=== PATIENT | male | born 1965 | race Caucasian/White ===

== ENCOUNTER 2016-11-22 21:42 | Emergency (ER) | payer SELFPAY ==
[2016-11-22 21:55] VITALS: TEMP 97.9
--- NOTE | 2016-11-22 22:09 | EDPHY ---
H & P Time Seen by Provider: 11/22/16 22:02 HPI/ROS: CHIEF COMPLAINT: Alcohol intoxication HISTORY OF PRESENT ILLNESS: The patient is a 51-year-old male presenting with alcohol intoxication. The patient has a history of alcohol abuse, his last drink was five hours ago. Patient states "I'm an alcoholic and I've been drinking a lot and smoking weed to the excess. I need help dealing with this please." The patient would like help with detox. He states he has been living on the streets for the last 16 weeks. He is ready to make a change. Patient additionally notes ongoing pain in his right groin. He had varicose vein removal years ago and has continued to have pain since surgery. REVIEW OF SYSTEMS: A comprehensive 10 point review of systems is otherwise negative aside from elements mentioned in the history of present illness. Past Medical/Surgical History: Alcohol abuse, Right lower extremity cellulitis, Right lower extremity varicose vein surgery Social History: Homeless. Alcohol abuse. Heavy marijuana use. Smoking Status: Current every day smoker Physical Exam: General Appearance: Alert, pleasant Eyes: Pupils equal and round, no conjunctival pallor or injection ENT, Mouth: Mucous membranes moist Neck: Normal inspection Respiratory: Lungs are clear to auscultation Cardiovascular: Regular rate and rhythm Gastrointestinal: Abdomen is soft and non-tender Neurological: A&O, nonfocal, normal gait Skin: Warm and dry, no rash Extremities: Nontender, no pedal edema Psychiatric: Mood and affect normal Constitutional: Initial Vital Signs Temperature (C) 36.6 C 11/22/16 21:51 Heart Rate 94 11/22/16 21:51 Respiratory Rate 18 11/22/16 21:51 Blood Pressure 115/74 11/22/16 21:51 O2 Sat (%) 94 11/22/16 21:51 O2 Delivery Mode Room Air Allergies/Adverse Reactions: No Known Allergies Allergy (Unverified 11/22/16 21:55) Home Medications: Medication Instructions Recorded NK [No Known Home Meds] 11/22/16 Departure - Departure Disposition: Home, Routine, Self-Care Clinical Impression: Alcohol intoxication Qualifiers: Complication of substance-induced condition: uncomplicated Qualified Code(s): F10.920 - Alcohol use, unspecified with intoxication, uncomplicated Condition: Good Instructions: Alcohol Intoxication (ED) Additional Instructions: [facility] to help detox from alcohol. Referrals: [facility] [Outside] - As per Instructions [facility] [Outside] - As per Instructions Report Scribed for: Jennifer Sage Report Scribed by: Marianne Ricks Date of Report: 11/22/16 Time of Report: 22:05 Physician Review and Approval Statement: 11/22/16 22:05 Portions of this note were transcribed by a medical review coordinator. I personally performed the history, physical exam, and medical decision-making; and confirmed the accuracy of the information in the transcribed note.
[2016-11-22] MEDS ORDERED: CHLORDIAZEPOXIDE 25MG PREPK#6 BTL TAKEHOME ONE (22:34)
[2016-11-22 23:00] VITALS: BP 129/74; PULSE 54; RESP 16; O2SAT 96
== END 2016-11-22 23:02 | disposition home or self-care (01) ==
DX: F10.920 Alcohol use, unspecified with intoxication, uncomplicated (principal); F17.200 Nicotine dependence, unspecified, uncomplicated

== ENCOUNTER 2017-07-05 02:22 | Emergency (ER) | payer MEDICAID ==
[2017-07-05 02:31] VITALS: RESP 18; O2SAT 92
[2017-07-05] MEDS ORDERED: CEPHALEXIN 500 MG CAP PO ONE (03:33)
--- NOTE | 2017-07-05 03:37 | EDPHY ---
H & P Stated Complaint: hand injury last week, juwan foot cellulitis Time Seen by Provider: 07/05/17 02:49 HPI/ROS: HPI The patient presents brought in by ambulance for foot pain of his right greater than left feet. This is been present for the last 2 days. He has been extensively walking and has not been changing his socks. He had slow onset of right foot pain which is achy, constant, worse with walking. It is not improved with elevation. This is associated with redness and weeping of the dorsum of his foot. He has not had any fevers or chills. He has not had any nausea or vomiting. He had a similar episode several years ago which improved with antibiotic pills. One week ago he was injured in [place] after a fall. He had an x-ray performed of his left hand which demonstrated a left thumb fracture. He lost his splint. He is also complaining of right hand pain and says no x-ray was performed and he is concerned that he may have broken something. REVIEW OF SYSTEMS Constitutional: No fever, no chills. Eyes: No discharge. ENT: No sore throat. Cardiovascular: No chest pain, no palpitations. Respiratory: No cough, no shortness of breath. Gastrointestinal: No abdominal pain, no vomiting. Genitourinary: No hematuria. Musculoskeletal: No back pain. Skin: See HPI Neurological: No headache. PMHx: No diabetes, no hypertension Soc Hx: Homeless PHYSICAL General Appearance: Alert, no distress Eyes: Pupils equal and round no pallor or injection ENT, Mouth: Mucous membranes moist Respiratory: There are no retractions, lungs are clear to auscultation Cardiovascular: Regular rate and rhythm Gastrointestinal: Abdomen is soft and non-tender, no masses, bowel sounds normal Neurological: A&O, moves all extremities Skin: Warm and dry, no rashes Musculoskeletal: Neck is supple non tender Extremities: Right foot is diffusely erythematous and warm, tender to palpation , there is denuded tissue on the dorsum of his foot which is weeping a clear fluid Psychiatric: Patient is oriented X 3, there is no agitation Source: Patient - Personal History Current Tetanus Diphtheria and Acellular Pertussis (TDAP): Yes - Medical/Surgical History Hx Asthma: No Hx Chronic Respiratory Disease: No Hx Diabetes: No Hx Cardiac Disease: No Hx Renal Disease: No Hx Cirrhosis: No Hx Alcoholism: Yes Hx HIV/AIDS: No Hx Splenectomy or Spleen Trauma: No Other PMH: appendectomy, vascular surgery for rt leg cellutits? - Social History Smoking Status: Current every day smoker Constitutional: Initial Vital Signs Temperature (C) 36.5 C 07/05/17 02:25 Heart Rate 116 H 07/05/17 02:25 Respiratory Rate 18 07/05/17 02:25 Blood Pressure 132/89 H 07/05/17 02:25 O2 Sat (%) 92 07/05/17 02:25 O2 Delivery Mode Room Air Allergies/Adverse Reactions: No Known Allergies Allergy (Unverified 11/22/16 21:55) Home Medications: Medication Instructions Recorded Cephalexin [Keflex (*)] 500 mg PO Q6H #28 cap 07/05/17 Medical Decision Making - Diagnostics Imaging Results: X-ray right hand three view shows no fracture, no dislocation, interpreted by me , radiology interpretation is pending. Differential Diagnosis: This is a 52-year-old male who is homeless with no significant past medical history who presents with pain of the right foot for the last 2 days associated with redness and drainage. He has poor hygiene and has been walking extensively. Differential diagnosis includes cellulitis, trench foot, less likely frostbite. In the emergency department, patient was given Keflex for likely cellulitis of his foot. X-ray of his right hand was performed per his request. His left thumb was splinted. Right hand x-ray was unremarkable. He was discharged with a prescription for Keflex and [facility]. - Data Points Medications Given: Discontinued Medications Cephalexin HCl (Keflex) 500 mg PO EDNOW ONE PRN Reason: Protocol Stop: 07/05/17 03:34 Last Admin: 07/05/17 03:56 Dose: 500 mg Departure - Departure Disposition: Home, Routine, Self-Care Condition: Good Instructions: Cellulitis (ED) Additional Instructions: Please elevate your feet as much as possible. You should take the antibiotic as prescribed. You should use an [id number] antibiotic ointment on the top of your right foot. Please return to the emergency department if your worse in any way. Please follow-up with [facility] for recheck of your feet. Referrals: [facility],. [Clinic] - As per Instructions Prescriptions: Cephalexin [Keflex (*)] 500 mg PO Q6H #28 cap
[2017-07-05 05:55] VITALS: BP 112/76; PULSE 102; TEMP 98.2
== END 2017-07-05 05:30 | disposition home or self-care (01) ==
LOC: EDUNIT#
DX: S62.502A Fracture of unspecified phalanx of left thumb, initial encounter for closed fracture (principal); L03.115 Cellulitis of right lower limb; F17.200 Nicotine dependence, unspecified, uncomplicated; Z59.0 Homelessness; W18.39XA Other fall on same level, initial encounter; Y92.89 Other specified places as the place of occurrence of the external cause
CPT/HCPCS: L3925